=== PATIENT | male | born 1980 | race Two or more races ===

== ENCOUNTER 2023-08-19 09:07 | Inpatient (IN) | payer SELFPAY ==
[~2023-08-19] VITALS: Ht 175.3 cm; Wt 78.6 kg
[2023-08-19 09:37] VITALS: PULSE 99; RESP 17; O2SAT 98
[2023-08-19 09:42] LABS: Basophils # (auto) 0 10 ^3/uL (0-0.2); Eosinophils # (auto) 0.2 10 ^3/uL (0-0.8); Hemoglobin 12.5 g/dL (13.5-17.5); Lymphocytes # (auto) 0.8 10 ^3/uL (0.4-5.4); Mean Corpuscular Hemoglobin 25.8 pg (28.0-32.0); Neutrophils # (auto) 2.1 10 ^3/uL (1.6-8.6); Nucleated Red Blood Cells % 0.1 %; White Blood Cell 3.8 10^3/uL (4.4-10.8)
[2023-08-19 09:44] LABS: Basophils % (auto) 0.6 % (0.0-2.0); Eosinophils % (auto) 5.3 % (0.0-7.0); Hematocrit 38.7 % (41.0-53.0); Lymphocytes % (auto) 21.3 % (10.0-50.0); Mean Corpuscular Hgb Conc. 32.3 g/dL (32.0-36.0); Monocytes # (auto) 0.6 10 ^3/uL (0-1.3); Monocytes % (auto) 16.7 % (0.0-12.0); Neutrophils % (auto) 56.1 % (37.0-80.0); Red Blood Cells 4.83 10^6/uL (4.5-5.90); Red Cell Distribution Width 19.9 % (11.8-14.3)
[2023-08-19 09:56] LABS: Alanine Aminotransferase 103 U/L (7-40); Albumin 3.7 g/dL (3.2-4.8); Alkaline Phosphatase 141 U/L (46-116); Anion Gap 13 (5-15); Aspartate Aminotransferase 123 U/L (13-40); BUN/Creatinine Ratio 14.8 (10.0-20.0); Blood Urea Nitrogen 17 mg/dL (9-23); Calcium 9.4 mg/dL (8.5-10.1); Carbon Dioxide 23 mmol/L (20-30); Chloride 109 mmol/L (98-107); Glucose 90 mg/dL (74-106); Sodium 145 mmol/L (136-145)
[2023-08-19 09:57] LABS: Bilirubin, Total 1.3 mg/dL (0.2-1.0); Total Protein 6.4 g/dL (5.7-8.2)
[2023-08-19 10:00] LABS: Potassium 2.4 mmol/L (3.5-5.1)
[2023-08-19 10:10] LABS: Urine Bacteria NONE SEEN /hpf (None Seen); Urine Blood 1+ /uL (Negative); Urine Clarity HAZY (Clear); Urine Color Yellow (Yellow); Urine Mucus MANY (None Seen); Urine Protein, UAD Negative (Negative); Urine Specific Gravity 1.011 (1.001-1.035); Urine Urobilinogen Normal (Negative); Urine WBC 26 /hpf (0 - 3)
[2023-08-19 10:12] LABS: Amphetamine Screen, Urine Neg (NEGATIVE); Barbiturate Scree,Urine Neg (NEGATIVE); Benzodiazephine Screen, Urine Neg (NEGATIVE)
[2023-08-19 10:13] LABS: Cannabinoid Screen, Urine Pos (NEGATIVE); Cocaine Screen, Urine Neg (NEGATIVE); Opiate Scree,Urine Neg (NEGATIVE); Phencyclidine Screen, Urine Neg (NEGATIVE)
[2023-08-19] MEDS ORDERED: LACTULOSE 20Gm/30ML SOLN PO ONE (10:30)
[2023-08-19] MEDS: POTASSIUM CHL 20MEQ/100ML 100 ML IV SCH ×5 (10:31→21:12)
[2023-08-19] MEDS ORDERED: LORazepam 2MG/ML-1ML VIAL IV PRN (11:45)
[2023-08-19] MEDS ORDERED: cefTRIAXone 1GM/50ML D5W 50 ML IV ONE (11:45)
[2023-08-19] MEDS ORDERED: ONDANSETRON HCL 4 MG/2 ML VIAL IV PRN (11:45)
[2023-08-19] MEDS ORDERED: hydrALAZINE HCL 20 MG/ML VL IV PRN (11:45)
[2023-08-19] MEDS ORDERED: DEXTROSE (50%) 50ML SYRG IV PRN (11:45)
[2023-08-19] MEDS: LACTULOSE 20Gm/30ML SOLN PO SCH ×6 (12:37→22:44)
[2023-08-19] MEDS: SOD CHL 0.45% 1,000 ML IV SCH ×2 (12:38→21:12)
[2023-08-19] MEDS: ACCU-CHEK COMFORT CURVE STRIP VI SCH ×3 (13:46→22:49)
[2023-08-19 15:18] LABS: INR 1.14 (0.9-1.15); Partial Thromboplastin Time 25.5 SEC (24.5-34.5); Prothrombin Time 12.1 sec (9.3-11.8)
[2023-08-19 19:40] VITALS: O2SAT 99
[2023-08-20] MEDS: LACTULOSE 20Gm/30ML SOLN PO SCH ×12 (01:00→22:05)
[2023-08-20] MEDS: LORazepam 2MG/ML-1ML VIAL IV PRN ×4 (01:00→13:40)
[2023-08-20] MEDS: SOD CHL 0.45% WITH 20MEQ KCL 1,000 ML IV SCH ×3 (01:43→18:25)
[2023-08-20] MEDS ORDERED: POTASSIUM CHL 20 Meq TABLET PO ONE (01:45)
[2023-08-20] MEDS: ACCU-CHEK COMFORT CURVE STRIP VI SCH ×6 (02:23→22:05)
[2023-08-20 04:58] LABS: Basophils # (auto) 0 10 ^3/uL (0-0.2); Eosinophils # (auto) 0.1 10 ^3/uL (0-0.8); Hematocrit 40.2 % (41.0-53.0); Hemoglobin 12.9 g/dL (13.5-17.5); Lymphocytes # (auto) 0.4 10 ^3/uL (0.4-5.4); Monocytes # (auto) 0.6 10 ^3/uL (0-1.3); Nucleated Red Blood Cells % 0.1 %
[2023-08-20 05:00] LABS: Basophils % (auto) 0.7 % (0.0-2.0); Eosinophils % (auto) 1.3 % (0.0-7.0); Lymphocytes % (auto) 9.1 % (10.0-50.0); Mean Corpuscular Hgb Conc. 32.2 g/dL (32.0-36.0); Mean Corpuscular Volume 80.9 fL (80.0-100.0); Monocytes % (auto) 13.7 % (0.0-12.0); Neutrophils # (auto) 3.5 10 ^3/uL (1.6-8.6); Neutrophils % (auto) 75.2 % (37.0-80.0); Red Blood Cells 4.97 10^6/uL (4.5-5.90); White Blood Cell 4.6 10^3/uL (4.4-10.8)
[2023-08-20 05:01] LABS: Alanine Aminotransferase 87 U/L (7-40); Alkaline Phosphatase 142 U/L (46-116); Anion Gap 13 (5-15); BUN/Creatinine Ratio 8.4 (10.0-20.0); Blood Urea Nitrogen 11 mg/dL (9-23); Calcium 8.9 mg/dL (8.7-10.4); Carbon Dioxide 21 mmol/L (20-30); Chloride 113 mmol/L (98-107); Glucose 107 mg/dL (74-106); Sodium 147 mmol/L (136-145)
[2023-08-20 05:02] LABS: Albumin 3.7 g/dL (3.2-4.8); Aspartate Aminotransferase 91 U/L (13-40); Bilirubin, Total 1.7 mg/dL (0.2-1.0); Total Protein 6.7 g/dL (5.7-8.2)
[2023-08-20 05:11] LABS: Red Cell Distribution Width 20.2 % (11.8-14.3)
[2023-08-20 05:14] LABS: Potassium 2.3 mmol/L (3.5-5.1)
[2023-08-20] MEDS: POTASSIUM CHL 20MEQ/100ML 100 ML IV SCH ×5 (06:06→16:00)
[2023-08-20 07:54] VITALS: PULSE 98; RESP 18; O2SAT 96
[2023-08-20] MEDS: cefTRIAXone 1GM/50ML D5W 50 ML IV SCH (10:03)
[2023-08-20] MEDS: FOLIC ACID 1 MG, MULTIPLE VITAMIN 10 ML, MAGNESIUM SULF SDV 50% 8 MEQ, THIAMINE INJ 100... INJ SCH ×5 (17:50)
[2023-08-20 19:30] VITALS: PULSE 111; RESP 17; O2SAT 99
[2023-08-20 21:14] VITALS: RESP 18
[2023-08-20 22:00] VITALS: BP 124/77; PULSE 112; RESP 20; TEMP 97.4; O2SAT 99
[2023-08-21] MEDS: SOD CHL 0.45% WITH 20MEQ KCL 1,000 ML IV SCH ×4 (00:05→20:47)
[2023-08-21] MEDS: ACCU-CHEK COMFORT CURVE STRIP VI SCH ×6 (02:10→22:00)
[2023-08-21] MEDS: LACTULOSE 20Gm/30ML SOLN PO SCH ×9 (02:10→16:00)
[2023-08-21 05:00] VITALS: BP 126/86; PULSE 95; RESP 20; TEMP 97.9; O2SAT 99
[2023-08-21 08:00] VITALS: PULSE 90; RESP 16; RESP 18; O2SAT 99
[2023-08-21] MEDS: LORazepam 2MG/ML-1ML VIAL IV PRN (10:12)
[2023-08-21] MEDS: cefTRIAXone 1GM/50ML D5W 50 ML IV SCH (10:46)
[2023-08-21] MEDS: FOLIC ACID 1 MG, MULTIPLE VITAMIN 10 ML, MAGNESIUM SULF SDV 50% 8 MEQ, THIAMINE INJ 100... INJ SCH ×5 (12:00)
[2023-08-21 13:00] VITALS: BP 110/71; PULSE 94; RESP 18; TEMP 97.8; O2SAT 100
[2023-08-21] MEDS ORDERED: POTASSIUM CHL 20MEQ/100ML 100 ML IV ONE (13:00)
[2023-08-21 14:37] LABS: Basophils # (auto) 0.1 10 ^3/uL (0-0.2); Eosinophils % (auto) 9.8 % (0.0-7.0); Mean Corpuscular Hemoglobin 25.8 pg (28.0-32.0); Mean Corpuscular Hgb Conc. 31.8 g/dL (32.0-36.0); Monocytes # (auto) 0.7 10 ^3/uL (0-1.3); Neutrophils # (auto) 2.5 10 ^3/uL (1.6-8.6); Nucleated Red Blood Cells % 0.1 %
[2023-08-21 14:39] LABS: Basophils % (auto) 1.9 % (0.0-2.0); Eosinophils # (auto) 0.4 10 ^3/uL (0-0.8); Hematocrit 37.6 % (41.0-53.0); Lymphocytes # (auto) 0.8 10 ^3/uL (0.4-5.4); Lymphocytes % (auto) 17.5 % (10.0-50.0); Mean Corpuscular Volume 81.4 fL (80.0-100.0); Monocytes % (auto) 16.1 % (0.0-12.0); Neutrophils % (auto) 54.7 % (37.0-80.0); Red Blood Cells 4.62 10^6/uL (4.5-5.90); Red Cell Distribution Width 19.7 % (11.8-14.3); White Blood Cell 4.5 10^3/uL (4.4-10.8)
[2023-08-21] MEDS: HALOPERIDOL LACTATE 5 MG/ML INJ VIAL IM PRN ×2 (14:50→23:27)
[2023-08-21 15:00] LABS: Alanine Aminotransferase 67 U/L (7-40); Albumin 3.2 g/dL (3.2-4.8); Alkaline Phosphatase 131 U/L (46-116); Anion Gap 6 (5-15); Aspartate Aminotransferase 58 U/L (13-40); BUN/Creatinine Ratio 9.8 (10.0-20.0); Blood Urea Nitrogen 11 mg/dL (9-23); Calcium 7.9 mg/dL (8.7-10.4); Carbon Dioxide 22 mmol/L (20-30); Chloride 116 mmol/L (98-107); Glucose 87 mg/dL (74-106); Potassium 3.3 mmol/L (3.5-5.1); Sodium 144 mmol/L (136-145)
[2023-08-21 15:01] LABS: Bilirubin, Total 1.1 mg/dL (0.2-1.0); Total Protein 5.8 g/dL (5.7-8.2)
[2023-08-21] MEDS ORDERED: LACTULOSE 20Gm/30ML SOLN PO SCH (17:30)
[2023-08-21] MEDS ORDERED: LACTULOSE 20Gm/30ML SOLN PO PRN (17:45)
[2023-08-21 20:00] VITALS: PULSE 90; RESP 18; RESP 20; O2SAT 99
[2023-08-21 22:00] VITALS: BP 110/70; PULSE 90; RESP 20; TEMP 97.8; O2SAT 99
[2023-08-21] MEDS ORDERED: POTASSIUM CHL 20 Meq TABLET PO ONE (22:00)
[2023-08-22] MEDS: ACCU-CHEK COMFORT CURVE STRIP VI SCH ×4 (02:00→18:40)
[2023-08-22 04:44] VITALS: BP 115/71; PULSE 85; RESP 20; TEMP 97.9; O2SAT 99
[2023-08-22 07:05] LABS: Basophils # (auto) 0.1 10 ^3/uL (0-0.2); Eosinophils # (auto) 0.4 10 ^3/uL (0-0.8); Lymphocytes # (auto) 0.7 10 ^3/uL (0.4-5.4); Red Cell Distribution Width 19.9 % (11.8-14.3)
[2023-08-22 07:11] LABS: Alanine Aminotransferase 62 U/L (7-40); Albumin 3.2 g/dL (3.2-4.8); Alkaline Phosphatase 129 U/L (46-116); Anion Gap 9 (5-15); Aspartate Aminotransferase 61 U/L (13-40); BUN/Creatinine Ratio 13.1 (10.0-20.0); Blood Urea Nitrogen 13 mg/dL (9-23); Calcium 8.5 mg/dL (8.7-10.4); Carbon Dioxide 19 mmol/L (20-30); Chloride 116 mmol/L (98-107); Glucose 88 mg/dL (74-106); Magnesium 2.1 mg/dL (1.6-2.6); Potassium 3.8 mmol/L (3.5-5.1); Sodium 144 mmol/L (136-145)
[2023-08-22 07:12] LABS: Bilirubin, Total 1.2 mg/dL (0.2-1.0); Total Protein 5.7 g/dL (5.7-8.2)
[2023-08-22 07:13] LABS: Basophils % (auto) 2.4 % (0.0-2.0); Eosinophils % (auto) 11.7 % (0.0-7.0); Hematocrit 37.7 % (41.0-53.0); Lymphocytes % (auto) 19.2 % (10.0-50.0); Mean Corpuscular Hemoglobin 25.7 pg (28.0-32.0); Mean Corpuscular Hgb Conc. 31.7 g/dL (32.0-36.0); Mean Corpuscular Volume 81.1 fL (80.0-100.0); Monocytes # (auto) 0.6 10 ^3/uL (0-1.3); Monocytes % (auto) 15.2 % (0.0-12.0); Neutrophils % (auto) 51.5 % (37.0-80.0); Nucleated Red Blood Cells % 0.2 %; Red Blood Cells 4.65 10^6/uL (4.5-5.90); White Blood Cell 3.8 10^3/uL (4.4-10.8)
[2023-08-22 08:00] VITALS: RESP 18
[2023-08-22 09:00] VITALS: BP 109/72; PULSE 97; RESP 19; TEMP 98.1; O2SAT 96
[2023-08-22] MEDS: cefTRIAXone 1GM/50ML D5W 50 ML IV SCH (09:00)
[2023-08-22] MEDS: SOD CHL 0.45% WITH 20MEQ KCL 1,000 ML IV SCH ×2 (10:00→20:27)
[2023-08-22] MEDS: HALOPERIDOL LACTATE 5 MG/ML INJ VIAL IM PRN ×2 (11:23→20:47)
[2023-08-22] MEDS: LACTULOSE 20Gm/30ML SOLN PO SCH ×2 (11:25→20:24)
[2023-08-22 13:00] VITALS: BP 113/70; PULSE 99; RESP 18; TEMP 98; O2SAT 99
[2023-08-22] MEDS: FOLIC ACID 1 MG, MULTIPLE VITAMIN 10 ML, MAGNESIUM SULF SDV 50% 8 MEQ, THIAMINE INJ 100... INJ SCH ×5 (18:00)
[2023-08-22 20:00] VITALS: PULSE 100; RESP 18; RESP 20
[2023-08-22 22:00] VITALS: BP 96/53; PULSE 100; RESP 20; TEMP 98; O2SAT 99
[2023-08-23] MEDS: ACCU-CHEK COMFORT CURVE STRIP VI SCH ×7 (02:22→22:00)
[2023-08-23] MEDS: SOD CHL 0.45% WITH 20MEQ KCL 1,000 ML IV SCH ×3 (04:45→21:25)
[2023-08-23] MEDS: LACTULOSE 20Gm/30ML SOLN PO SCH ×3 (05:26→17:37)
[2023-08-23 07:56] LABS: Alanine Aminotransferase 55 U/L (7-40); Alkaline Phosphatase 119 U/L (46-116); Anion Gap 8 (5-15); Aspartate Aminotransferase 65 U/L (13-40); BUN/Creatinine Ratio 16.1 (10.0-20.0); Blood Urea Nitrogen 15 mg/dL (9-23); Calcium 8.6 mg/dL (8.7-10.4); Carbon Dioxide 19 mmol/L (20-30); Chloride 117 mmol/L (98-107); Glucose 88 mg/dL (74-106); Potassium 3.3 mmol/L (3.5-5.1); Sodium 144 mmol/L (136-145)
[2023-08-23 07:57] LABS: Total Protein 5.5 g/dL (5.7-8.2)
[2023-08-23 08:00] VITALS: RESP 18; RESP 20
[2023-08-23 09:00] VITALS: BP 103/66; PULSE 95; RESP 19; TEMP 97.8; O2SAT 96
[2023-08-23] MEDS: cefTRIAXone 1GM/50ML D5W 50 ML IV SCH (09:19)
[2023-08-23 10:28] LABS: Hepatitis B Core Total AB Negative (Negative)
[2023-08-23 11:12] LABS: Hepatitis A Total Antibody Positive (Negative); Hepatitis B Surface Antibody Positive (Negative)
[2023-08-23 11:13] LABS: Hepatitis B Surface Antigen Negative (Negative)
[2023-08-23 11:16] LABS: Hepatitis C Antibody Reactive (Negative)
[2023-08-23 13:00] VITALS: BP 122/83; PULSE 115; RESP 19; TEMP 97.8; O2SAT 99
[2023-08-23] MEDS ORDERED: POTASSIUM CHL 20 Meq TABLET PO ONE ×2 (15:30→15:39)
[2023-08-23 16:34] VITALS: BP 97/57; PULSE 103; RESP 20; TEMP 97.5; O2SAT 96
[2023-08-23] MEDS: FOLIC ACID 1 MG, MULTIPLE VITAMIN 10 ML, MAGNESIUM SULF SDV 50% 8 MEQ, THIAMINE INJ 100... INJ SCH ×5 (17:45)
[2023-08-23 20:00] VITALS: RESP 18; RESP 20
[2023-08-24] MEDS: LACTULOSE 20Gm/30ML SOLN PO SCH ×4 (01:58→17:41)
[2023-08-24] MEDS: ACCU-CHEK COMFORT CURVE STRIP VI SCH ×6 (02:05→22:41)
[2023-08-24] MEDS: SOD CHL 0.45% WITH 20MEQ KCL 1,000 ML IV SCH (05:45)
[2023-08-24 07:29] LABS: Alanine Aminotransferase 45 U/L (7-40); Albumin 3.1 g/dL (3.2-4.8); Alkaline Phosphatase 117 U/L (46-116); Anion Gap 7 (5-15); Aspartate Aminotransferase 58 U/L (13-40); BUN/Creatinine Ratio 14.2 (10.0-20.0); Blood Urea Nitrogen 15 mg/dL (9-23); Calcium 8.4 mg/dL (8.7-10.4); Carbon Dioxide 19 mmol/L (20-30); Chloride 116 mmol/L (98-107); Glucose 92 mg/dL (74-106); Lipase 83 U/L (12-53); Magnesium 1.9 mg/dL (1.6-2.6); Potassium 3.5 mmol/L (3.5-5.1); Sodium 142 mmol/L (136-145)
[2023-08-24 07:30] LABS: Bilirubin, Total 0.7 mg/dL (0.2-1.0); Total Protein 5.5 g/dL (5.7-8.2)
[2023-08-24 08:00] VITALS: RESP 18; RESP 20
[2023-08-24] MEDS: cefTRIAXone 1GM/50ML D5W 50 ML IV SCH (08:38)
[2023-08-24 08:55] VITALS: BP 104/66; PULSE 88; RESP 20; O2SAT 99
[2023-08-24] MEDS ORDERED: LACTULOSE 10g/15ml SOLN 473ML PR ONE (09:45)
[2023-08-24 13:00] VITALS: BP 127/76; PULSE 99; RESP 19; O2SAT 95
[2023-08-24] MEDS ORDERED: MORPHINE SULFATE INJ 2 MG/ml SYRG IV PRN (13:00)
[2023-08-24] MEDS ORDERED: MORPHINE SULFATE INJ 2 MG/ml SYRG ONE (13:03)
[2023-08-24 17:00] VITALS: BP 131/68; PULSE 102; RESP 19; TEMP 98.4; O2SAT 98
[2023-08-24] MEDS: FOLIC ACID 1 MG, MULTIPLE VITAMIN 10 ML, MAGNESIUM SULF SDV 50% 8 MEQ, THIAMINE INJ 100... INJ SCH ×5 (18:10)
[2023-08-24 20:00] VITALS: BP 115/76; PULSE 92; RESP 16; RESP 17; TEMP 98.2; O2SAT 100
[2023-08-25] MEDS: LACTULOSE 20Gm/30ML SOLN PO SCH ×3 (00:36→11:47)
[2023-08-25] MEDS: ACCU-CHEK COMFORT CURVE STRIP VI SCH ×3 (02:31→11:46)
[2023-08-25 07:48] LABS: Alanine Aminotransferase 36 U/L (7-40); Alkaline Phosphatase 102 U/L (46-116); Anion Gap 5 (5-15); Calcium 7.5 mg/dL (8.7-10.4); Carbon Dioxide 19 mmol/L (20-30); Chloride 111 mmol/L (98-107); Glucose 90 mg/dL (74-106); Magnesium 1.8 mg/dL (1.6-2.6); Potassium 3.1 mmol/L (3.5-5.1)
[2023-08-25 07:49] LABS: Aspartate Aminotransferase 45 U/L (13-40); BUN/Creatinine Ratio 9.1 (10.0-20.0); Bilirubin, Total 0.8 mg/dL (0.2-1.0); Blood Urea Nitrogen 8 mg/dL (9-23); Total Protein 5.4 g/dL (5.7-8.2)
[2023-08-25 07:52] LABS: Sodium 135 mmol/L (136-145)
[2023-08-25] MEDS: cefTRIAXone 1GM/50ML D5W 50 ML IV SCH (10:53)
== END 2023-08-25 12:34 | disposition left against medical advice (07) | DRG 442 ==
LOC: ER 09:07 → EDBD 09:07 → OVERFLOW 12:07 → WEST WING 08-20 20:38
PROVIDERS: ADMIT Nurse Practitioner Family; ATTEND Internal Medicine Geriatric Medicine
DX: K76.82 Hepatic encephalopathy (principal); E72.20 Disorder of urea cycle metabolism, unspecified; E87.0 Hyperosmolality and hypernatremia; N30.01 Acute cystitis with hematuria; N17.9 Acute kidney failure, unspecified; F10.139 Alcohol abuse with withdrawal, unspecified; I10 Essential (primary) hypertension; G31.2 Degeneration of nervous system due to alcohol; E87.6 Hypokalemia; K59.00 Constipation, unspecified; Z53.29 Procedure and treatment not carried out because of patient's decision for other reasons
CPT/HCPCS: 36415; 70450; 71045; 74018; 76705; 80053; 80307; 80320; 81001; 82140; 82728; 82962; 83690; 83735; 83880; 84132; 84484; 85025; 85610; 85730; 86704; 86706; 86708; 86803; 87040; 87086; 87340; 93005; 96365; 96366; 96367; 96375; 97163; G0378; J0696; J2405; J3480; J7042